=== PATIENT | female | born 1995 | race Caucasian/White ===

== ENCOUNTER 2020-08-24 16:38 | Outpatient (CLI) | payer OTHER, SELFPAY ==
[2020-08-24 17:59] LABS: SARS-CoV-2 Ag Negative (Negative)
[2020-08-26 00:37] LABS: SARS-CoV-2 RNA PCR Negative
== END 2020-08-24 16:39 | disposition home or self-care (01) ==
LOC: CHSLAB 16:44
PROVIDERS: PCP Family Medicine; Visit Provider Family Medicine
DX: J02.9 Acute pharyngitis, unspecified (principal); Z20.822 Contact with and (suspected) exposure to COVID-19
CPT/HCPCS: 36415; 87081; 87426; 87880; C9803; U0003; U0005

== ENCOUNTER 2020-11-25 08:58 | Outpatient (CLI) | payer OTHER, SELFPAY ==
--- NOTE | ~2020-11-25 | US_ITS ---
EXAMINATION: US pelvic complete DATE: 11/25/2020 09:54 INDICATION: Dysmenorrhea TECHNIQUE: Multiple transabdominal sonographic images of the pelvis were obtained. COMPARISON: None. FINDINGS: The uterus measures 7.3 x 3.2 x 4.3 cm. The endometrial complex measures 3 mm. The right ov stuart measures 2.7 x 1.6 x 1.8 cm. The left ovary measures 1.5 x 0.9 x 1.0 cm. There is normal vascular flow in the ovaries. There is no free fluid in the pelvis. IMPRESSION: 1. No sonographic correlate for the patient's symptoms. Reviewed, dictated and finalized at location A.
== END 2020-11-25 08:59 | disposition home or self-care (01) ==
LOC: CHSIMG 09:01
PROVIDERS: PCP Family Medicine; Visit Provider Family Medicine
DX: N94.6 Dysmenorrhea, unspecified (principal)
CPT/HCPCS: 76856

== ENCOUNTER 2021-02-02 18:06 | Outpatient (CLI) | payer OTHER, SELFPAY ==
[2021-02-02 19:27] LABS: SARS-CoV-2 RNA PCR Negative (Negative)
== END 2021-02-02 18:07 | disposition home or self-care (01) ==
LOC: CHSLAB 18:09
PROVIDERS: PCP Family Medicine; Visit Provider Family Medicine
DX: J02.9 Acute pharyngitis, unspecified (principal); Z20.822 Contact with and (suspected) exposure to COVID-19
CPT/HCPCS: 87081; 87880; C9803; U0003; U0005

== ENCOUNTER 2021-07-26 16:25 | Outpatient (CLI) | payer OTHER, SELFPAY ==
--- NOTE | ~2021-07-26 | XR_ITS ---
EXAMINATION: XR foot RT min 3V EXAM DATE: 07/26/2021 16:58 INDICATION: pain across top of the 1st digit after fall x 2 days ago. TECHNIQUE: Right foot dorsoplantar, lateral and oblique projections obtained and reviewed. There is no prior study for comparison. FINDINGS: Right metatarsal bones unremarkable. There are no acute fractures or dislocations identifi ed. There is no subcutaneous gas. The soft tissue is unremarkable. There are no radiopaque foreig n bodies. IMPRESSION: No acute osseous findings. Reviewed, dictated and finalized at location A. 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
[2021-07-26 19:48] LABS: Basophils Absolute Auto 0.05 K/mm3 (0.00-0.10); Basophils Percent Auto 0.6 % (0.0-1.0); Eosinophils Absolute Auto 0.12 K/mm3 (0.02-0.50); Eosinophils Percent Auto 1.5 % (1.0-6.0); Hematocrit 42.9 % (35.0-49.0); Hemoglobin 13.6 g/dL (12.0-15.0); Immature Granulocyte Absolute 0.02 K/mm3 (0.00-0.00); Immature Granulocyte Percent A 0.2 % (0.0-0.0); Lymphocytes Absolute Auto 1.96 K/mm3 (1.10-4.50); Lymphocytes Percent Auto 24.5 % (18.0-42.0); Mean Corpuscular HGB Conc 31.7 g/dL (32.0-36.0); Mean Corpuscular Hemoglobin 27.9 pg (27.0-31.0); Mean Corpuscular Volume 87.9 fL (78.0-102.0); Mean Platelet Volume 11.2 fl (9.2-11.8); Monocytes Absolute Auto 0.59 K/mm3 (0.10-0.90); Monocytes Percent Auto 7.4 % (2.0-11.0); Neutrophils Absolute Auto 5.3 K/mm3 (1.7-7.2); Neutrophils Percent Auto 65.8 % (50.0-70.0); Platelet Count Result 322 K/mm3 (150-420); Red Blood Count 4.88 M/mm3 (4.20-5.40)
[2021-07-26 19:58] LABS: Anion Gap 9 mmol/L (8-16); Blood Urea Nitrogen 9 mg/dL (7-18); Calcium 9.4 mg/dL (8.5-10.1); Carbon Dioxide 28 mmol/L (21-32); Chloride 101 mmol/L (98-108); Estimated Glomerular Filt Rate > 60; Glucose 86 mg/dL (70-99); Osmolality Calculated 283 mOsm/kg (285-295); Potassium 4.5 mmol/L (3.5-5.1); Sodium 138 mmol/L (136-145); Uric Acid 4.2 mg/dL (2.6-6.0)
== END 2021-07-26 16:26 | disposition home or self-care (01) ==
LOC: CHSLAB 16:28
PROVIDERS: PCP Family Medicine; Visit Provider Family Medicine
DX: M79.671 Pain in right foot (principal)
CPT/HCPCS: 36415; 73630; 80048; 84550; 85025

== ENCOUNTER 2021-12-09 15:46 | Outpatient (CLI) | payer OTHER, SELFPAY ==
[2021-12-09 16:23] LABS: Hematocrit 40.6 % (35.0-49.0); Hemoglobin 13.3 g/dL (12.0-15.0); Mean Corpuscular HGB Conc 32.8 g/dL (32.0-36.0); Mean Corpuscular Hemoglobin 28.7 pg (27.0-31.0); Mean Corpuscular Volume 87.5 fL (78.0-102.0); Platelet Count Result 225 K/mm3 (150-420); Red Blood Count 4.64 M/mm3 (4.20-5.40); Red Cell Distribution Width 11.9 % (11.6-14.4); White Blood Count 3.5 K/mm3 (4.8-10.8)
[2021-12-09 16:59] LABS: Influenza A QL RT-PCR Negative (Negative); Influenza B QL RT-PCR Negative (Negative); SARS-CoV-2 RNA PCR Positive (Negative)
[2021-12-09 17:01] LABS: Band Neutrophils Percent 0 % (0-6); Basophils Absolute Manual 0.03 K/mm3 (0-0.1); Basophils Percent Manual 1 % (0-1); Eosinophils Absolute Manual 0.03 K/mm3 (0.02-0.5); Eosinophils Percent Manual 1 % (1-6); Lymphocytes Absolute Manual 0.31 K/mm3 (1.1-4.5); Lymphocytes Percent Manual 9 % (18-44); Monocytes Absolute Manual 0.98 K/mm3 (0.1-0.90); Monocytes Percent Manual 28 % (3-9); Neutrophils Absolute Manual 2.13 K/mm3 (1.7-7.2); Neutrophils Percent Manual 61 % (46-73); Platelet Estimate Adequate (Adequate); Total Cells Counted 100
[2021-12-10 18:21] LABS: Alanine Aminotransferase 29 U/L (14-59); Albumin Level 3.9 g/dL (3.4-5.0); Alkaline Phosphatase 105 U/L (46-116); Anion Gap 11 mmol/L (8-16); Aspartate Amino Transferase 16 U/L (15-37); Bilirubin,Total 0.2 mg/dL (0.00-1.00); Blood Urea Nitrogen 6 mg/dL (7-18); Carbon Dioxide 25 mmol/L (21-32); Chloride 98 mmol/L (98-108); Creatine Kinase 58 U/L (26-192); Estimated Glomerular Filt Rate > 60; Glucose 86 mg/dL (70-99); Osmolality Calculated 274 mOsm/kg (285-295); Potassium 3.9 mmol/L (3.5-5.1); Sodium 134 mmol/L (136-145); Total Protein 7.9 g/dL (6.4-8.2)
== END 2021-12-09 15:47 | disposition home or self-care (01) ==
LOC: CHSLAB 15:48
PROVIDERS: PCP Family Medicine; Visit Provider Family Medicine
DX: U07.1 COVID-19 (principal); M79.10 Myalgia, unspecified site
CPT/HCPCS: 80053; 82550; 85025; 87081; 87502; 87880; C9803; U0003; U0005

== ENCOUNTER 2023-07-21 06:08 | Emergency (ER) | payer SELFPAY ==
--- NOTE | ~2023-07-21 | CT_ITS ---
EXAMINATION: CT abdomen pelvis wo con DATE: 07/21/2023 06:54 INDICATION: Right lower quadrant abdominal pain. TECHNIQUE: Computed tomography (CT) of the abdomen and pelvis was performed without intravenous contr ast. Automated exposure control and iterative reconstruction technique were employed. The dose-length product was 1110.56 mGy-cm. COMPARISON: None. FINDINGS: The visualized portions of the lung bases demonstrate minimal atelectasis. No pleural effus ion. The heart size is normal. No pericardial effusion. The liver, gallbladder, spleen, pancreas, adr enal glands, and kidneys are normal. No urolithiasis. There are no dilated loops of bowel. The append ix is normal. There are no pathologically enlarged lymph nodes. There is no free intraperitoneal flui d. There is mild thoracic and lumbar spondylosis. There is mild chronic anterior wedging of multiple thoracic vertebral bodies. IMPRESSION: 1. No etiology for the patient's symptoms. Reviewed, dictated and finalized at location A. 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
[2023-07-21 06:08] VITALS: BP 154/97; PULSE 88; RESP 18; TEMP 36.5; O2SAT 100
--- NOTE | 2023-07-21 06:12 | ED.ABDPAIN ---
HPI - Abdominal Pain General Chief Complaint: Abdominal Pain <Nick Meredith MD - Last Filed: 07/22/23 07:19> Stated Complaint: abdominal pain <Nick Meredith MD - Last Filed: 07/22/23 07:19> Time Seen by Provider: 07/21/23 06:09 <Nick Meredith MD - Last Filed: 07/22/23 07:19> Source: patient <Nick Meredith MD - Last Filed: 07/22/23 07:19> Mode of arrival: ambulatory <Nick Meredith MD - Last Filed: 07/22/23 07:19> Limitations: no limitations <Nick Meredith MD - Last Filed: 07/22/23 07:19> History of Present Illness HPI narrative: Patient is a 28-year-old female with right-sided abdominal pain. This started about 3-4 hours ago. <Nick Meredith MD - Last Filed: 07/22/23 07:19> MD elicited complaint: abdominal pain <Nick Meredith MD - Last Filed: 07/22/23 07:19> Pertinent past history: none <Nick Meredith MD - Last Filed: 07/22/23 07:19> Onset (ago): hour(s) (4) <Nick Meredith MD - Last Filed: 07/22/23 07:19> Pain Consistency: constant <Nick Meredith MD - Last Filed: 07/22/23 07:19> Location: RUQ and RLQ <Nick Meredith MD - Last Filed: 07/22/23 07:19> Severity: moderate <Nick Meredith MD - Last Filed: 07/22/23 07:19> Pain scale (0-10): 8 <Nick Meredith MD - Last Filed: 07/22/23 07:19> Quality: sharp <Nick Meredith MD - Last Filed: 07/22/23 07:19> Radiation: none <Nick Meredith MD - Last Filed: 07/22/23 07:19> Migration to: no migration <Nick Meredith MD - Last Filed: 07/22/23 07:19> Exacerbating factors: nothing <Nick Meredith MD - Last Filed: 07/22/23 07:19> Relieving factors: nothing <Nick Meredith MD - Last Filed: 07/22/23 07:19> Associated symptoms: denies other symptoms <Nick Meredith MD - Last Filed: 07/22/23 07:19> Related Data Home Medications: Home Medications Medication Instructions Recorded Confirmed No Home Medications 07/21/23 07/21/23 <Nick Meredith MD - Last Filed: 07/22/23 07:19> Allergies/Adverse Reactions: Allergies Allergy/AdvReac Type Severity Reaction Status Date / Time adhesive Allergy Rash Verified 07/21/23 06:11 <Nick Meredith MD - Last Filed: 07/22/23 07:19> Review of Systems Review of Systems: All systems reviewed & are unremarkable except as noted in HPI and below <Nick Meredith MD - Last Filed: 07/22/23 07:19> Constitutional: Constitutional: Reports no additional constitutional complaints <Nick Meredith MD - Last Filed: 07/22/23 07:19> Eyes: Eyes: Reports no additional eye complaints <Nick Meredith MD - Last Filed: 07/22/23 07:19> ENT: Reports system reviewed and no additional complaints, except as documented <Nick Meredith MD - Last Filed: 07/22/23 07:19> Cardiovascular: Cardiovascular: Reports no additional cardiovascular complaints <Nick Meredith MD - Last Filed: 07/22/23 07:19> Respiratory: Respiratory: Reports no additional respiratory complaints <Nick Meredith MD - Last Filed: 07/22/23 07:19> Gastrointestinal: Gastrointestinal: Reports no additional gastrointestinal complaints <Nick Meredith MD - Last Filed: 07/22/23 07:19> Genitourinary: Genitourinary: Reports no additional female genitourinary complaints <Nick Meredith MD - Last Filed: 07/22/23 07:19> Musculoskeletal: Musculoskeletal: Reports no additional musculoskeletal complaints <Nick Meredith MD - Last Filed: 07/22/23 07:19> Integumentary/Breasts: Skin/Breast: Reports system reviewed and no additional complaints, except as docu <Nick Meredith MD - Last Filed: 07/22/23 07:19> Neurologic: Reports system reviewed and no additional complaints, except as documented <Nick Meredith MD - Last Filed: 07/22/23 07:19> Psychiatric: Psychiatric: Reports no additional psychiatric complaints <Nick Meredith MD - Last Filed: 07/22/23 07:19
[2023-07-21 06:25] LABS: Basophils Absolute Auto 0.05 K/mm3 (0.00-0.10); Basophils Percent Auto 0.7 % (0.0-1.0); Eosinophils Absolute Auto 0.15 K/mm3 (0.02-0.50); Hematocrit 39.8 % (35.0-49.0); Hemoglobin 13.3 g/dL (12.0-15.0); Immature Granulocyte Absolute 0.01 K/mm3 (0.00-0.00); Immature Granulocyte Percent A 0.1 % (0.0-0.0); Lymphocytes Percent Auto 28.6 % (18.0-42.0); Mean Corpuscular HGB Conc 33.4 g/dL (32.0-36.0); Mean Corpuscular Hemoglobin 29.2 pg (27.0-31.0); Mean Corpuscular Volume 87.5 fL (78.0-102.0); Mean Platelet Volume 10.5 fl (9.2-11.8); Monocytes Absolute Auto 0.67 K/mm3 (0.10-0.90); Monocytes Percent Auto 9.1 % (2.0-11.0); Neutrophils Absolute Auto 4.4 K/mm3 (1.7-7.2); Neutrophils Percent Auto 59.5 % (50.0-70.0); Platelet Count Result 276 K/mm3 (150-420); Red Blood Count 4.55 M/mm3 (4.20-5.40); Red Cell Distribution Width 11.9 % (11.6-14.4); White Blood Count 7.4 K/mm3 (4.8-10.8)
[2023-07-21 06:40] LABS: Appearance Urine Clear (Clear); Bilirubin Urine Negative (Negative); Blood Urine Trace-Intact (Negative); Color Urine Yellow (Yellow); Glucose Urine UA Negative (Negative); Ketones Urine Negative (Negative); Leukocyte Esterase Ur Negative LEU/UL (Negative); Nitrate Urine Negative (Negative); Protein Urine Negative (Negative); Specific Grav Ur 1.025 (1.010-1.020); Urobilinogen Urine 0.2 mg/dL (0.2-1.0)
[2023-07-21] MEDS: MORPHINE SULFATE (*CRX) 2 MG/ML INJ IM (06:40)
[2023-07-21 06:41] LABS: Alanine Aminotransferase 26 U/L (14-59); Albumin Level 3.6 g/dL (3.4-5.0); Alkaline Phosphatase 107 U/L (46-116); Anion Gap 7 mmol/L (8-16); Aspartate Amino Transferase 14 U/L (15-37); Bilirubin,Total 0.3 mg/dL (0.00-1.00); Blood Urea Nitrogen 9 mg/dL (7-18); Calcium 8.4 mg/dL (8.5-10.1); Carbon Dioxide 30 mmol/L (21-32); Chloride 102 mmol/L (98-108); Estimated CRCL calculation 108 ml/min; Estimated Glomerular Filt Rate > 60; Glucose 100 mg/dL (70-99); Lipase 22 U/L (16-77); Osmolality Calculated 286 mOsm/kg (285-295); Potassium 3.7 mmol/L (3.5-5.1); Sodium 139 mmol/L (136-145); Total Protein 8.3 g/dL (6.4-8.2)
[2023-07-21 06:41] LABS: Urine Pregnancy Test Negative
[2023-07-21 06:42] LABS: Pregnancy On Board Control Positive
[2023-07-21 06:44] LABS: Add Urine Microscopic? YES; Bacteria Urine Trace /hpf; Mucus Urine Moderate /lpf; RBC Urine 0-2 /hpf (0-2); Squamous Epithelial Cell Urine Moderate /hpf (Few); WBC Urine None seen /hpf (0-3)
[2023-07-21 07:20] VITALS: BP 138/90; PULSE 80; RESP 17; TEMP 36.8; O2SAT 100
[2023-07-21 07:45] VITALS: BP 138/90; PULSE 80; RESP 17; TEMP 36.8; O2SAT 100
== END 2023-07-21 07:45 | disposition home or self-care (01) ==
PROVIDERS: Emergency Medicine; Emergency Provider Family Medicine; PCP Family Medicine
DX: R10.9 Unspecified abdominal pain (principal)
CPT/HCPCS: 36415; 74176; 80053; 81001; 81025; 83690; 85025; 96372; 99284; J2270